=== PATIENT | female | born 1975 | race Caucasian/White ===

== ENCOUNTER → 2016-10-11 | Outpatient (CLI) | payer BC, OTHER ==
[~2016-10-11] MED LIST: ADVIL200 MG PO; AMBIEN10 MG PO; ATIVAN 1MG T1 MG/TAB PO; INDERAL 10MG10 MG PO; LAMICTAL 100MG100 MG PO; LEXAPRO 10MG10 MG PO; LINZESS290CAP; MAXALT MLT10 MG/TAB PO; METFORMIN500 MG PO; METOPROLOL SUC100 MG PO; NEURONTIN300 MG PO; NORCO 325 MG-51 TAB PO; PAXIL20 MG PO; SEROQUEL50 MG PO; TENORMIN 2525 MG/TAB PO; TENORMIN 5050 MG/TAB PO; ZOFRAN 4MG T4 MG/TAB PO
== END ==
LOC: BHSO 16:16
DX: F41.1 Generalized anxiety disorder (principal)

== ENCOUNTER 2016-10-17 13:13 | Emergency (ER) | payer BC, OTHER ==
[~2016-10-17] VITALS: Ht 167.6 cm; Wt 75.0 kg
[~2016-10-17 13:13] MED LIST changes: -ADVIL200 MG PO; -ATIVAN 1MG T1 MG/TAB PO; -INDERAL 10MG10 MG PO; -LAMICTAL 100MG100 MG PO; -LEXAPRO 10MG10 MG PO; -MAXALT MLT10 MG/TAB PO; -SEROQUEL50 MG PO; -TENORMIN 2525 MG/TAB PO; -TENORMIN 5050 MG/TAB PO; -ZOFRAN 4MG T4 MG/TAB PO
[2016-10-17 13:19] VITALS: TEMP 98.1
[2016-10-17] MEDS ORDERED: TENORMIN 5050 MG/TAB PO (13:22)
[2016-10-17] MEDS ORDERED: SEROQUEL50 MG PO (13:23)
[2016-10-17] MEDS ORDERED: LAMICTAL 100MG100 MG PO (13:24)
[2016-10-17 15:06] VITALS: BP 99/52; PULSE 62
== END 2016-10-17 15:07 | disposition home or self-care (01) ==
LOC: COL.ER 13:13
DX: G43.909 Migraine, unspecified, not intractable, without status migrainosus (principal); I10 Essential (primary) hypertension
CPT/HCPCS: J1100; J1200; J2550

== ENCOUNTER → 2016-11-09 | Outpatient (REF) ==
[~2016-11-09] MED LIST changes: +ADVIL200 MG PO; +ATIVAN 1MG T1 MG/TAB PO; +INDERAL 10MG10 MG PO; +LAMICTAL 100MG100 MG PO; +LEXAPRO 10MG10 MG PO; +MAXALT MLT10 MG/TAB PO; +SEROQUEL50 MG PO; +TENORMIN 2525 MG/TAB PO; +TENORMIN 5050 MG/TAB PO; +ZOFRAN 4MG T4 MG/TAB PO
== END ==
LOC: WSOH 08:00
DX: Z01.89 Encounter for other specified special examinations (principal)

== ENCOUNTER → 2017-01-03 | Outpatient (CLI) | payer BC | LOC: BHSO 16:15 | DX: F41.1 Generalized anxiety disorder (principal) ==

== ENCOUNTER 2017-01-19 13:30 | Emergency (ER) | payer BC ==
[~2017-01-19] VITALS: Ht 167.6 cm; Wt 75.0 kg
[~2017-01-19 13:30] MED LIST changes: -ADVIL200 MG PO; -ATIVAN 1MG T1 MG/TAB PO; -INDERAL 10MG10 MG PO; -LEXAPRO 10MG10 MG PO; -MAXALT MLT10 MG/TAB PO; -TENORMIN 2525 MG/TAB PO; -ZOFRAN 4MG T4 MG/TAB PO
[2017-01-19 13:31] VITALS: TEMP 98.6
[2017-01-19 14:05] LABS: BASO % 0.3 % (0.0-2.0); EOS # 0.1 (0.0-0.7); EOS % 1.5 % (0-4.0); GRAN # 5.9 (1.4-6.5); HEMATOCRIT 38.4 % (37.0-47.0); HEMOGLOBIN 13.1 g/dl (12.5-16.0); LYMPH # 0.8 (1.2-3.4); LYMPH % 11.4 % (20.0-51.0); MEAN CELL VOLUME 92 fl (80.0-100.0); MEAN CORPUSCULAR HEMOGLOBIN 31 pg (27.0-31.0); MEAN CORPUSCULAR HGB CONC 34 g/dl (33.0-37.0); MEAN PLATELET VOLUME 9.2 fl (7.4-10.4); MONO # 0.5 (0.1-0.6); MONO % 6.4 % (1.7-9.3); PLATELET COUNT 214 K/mm3 (130-400); RED BLOOD COUNT 4.18 M/mm3 (4.10-5.30); REDCELL DISTRIBUTION WIDTH-CV 12.2 % (11.5-14.5); WHITE BLOOD COUNT 7.4 K/mm3 (4.8-10.8)
[2017-01-19 14:08] LABS: ADJUSTED CALCIUM 9.1 mg/dL (8.4-10.2); ALBUMIN 4.3 gm/dL (3.5-5.0); CALCIUM 9.3 mg/dL (8.4-10.2); CREATININE, serum 0.8 mg/dL (0.52-1.25); POTASSIUM 3.9 mmol/L (3.4-5.0); TOTAL PROTEIN 7.4 gm/dL (6.4-8.2)
[2017-01-19] MEDS ORDERED: NORCO 325 MG-51 TAB PO (16:41)
[2017-01-19] MEDS ORDERED: ZOFRAN 4MG T4 MG/TAB PO (16:41)
[2017-01-19 17:08] VITALS: BP 122/68; PULSE 68
== END 2017-01-19 17:07 | disposition home or self-care (01) ==
LOC: COL.ER 13:30
PROVIDERS: Physician Assistant Medical
DX: R10.12 Left upper quadrant pain (principal); K80.20 Calculus of gallbladder without cholecystitis without obstruction; N83.201 Unspecified ovarian cyst, right side; F41.9 Anxiety disorder, unspecified; F32.9 Major depressive disorder, single episode, unspecified; E11.9 Type 2 diabetes mellitus without complications; Z79.84 Long term (current) use of oral hypoglycemic drugs
CPT/HCPCS: J2405; J3010; J7030; Q9967

== ENCOUNTER → 2017-02-18 | Outpatient (CLI) | payer BC ==
[~2017-02-18] MED LIST changes: +ADVIL200 MG PO; +ATIVAN 1MG T1 MG/TAB PO; +INDERAL 10MG10 MG PO; +LEXAPRO 10MG10 MG PO; +MAXALT MLT10 MG/TAB PO; +TENORMIN 2525 MG/TAB PO; +ZOFRAN 4MG T4 MG/TAB PO
== END ==
LOC: BHSO 13:57
DX: F33.1 Major depressive disorder, recurrent, moderate (principal)

== ENCOUNTER → 2017-03-31 | Outpatient (CLI) | payer BC, OTHER | LOC: BHSO 15:43 | DX: F33.1 Major depressive disorder, recurrent, moderate (principal) ==

== ENCOUNTER 2017-04-02 20:28 | Observation (INO) | payer BC, OTHER ==
[~2017-04-02] VITALS: Ht 167.6 cm; Wt 73.8 kg
[~2017-04-02 20:28] MED LIST changes: -ADVIL200 MG PO; -ATIVAN 1MG T1 MG/TAB PO; -INDERAL 10MG10 MG PO; -LEXAPRO 10MG10 MG PO; -MAXALT MLT10 MG/TAB PO; -TENORMIN 2525 MG/TAB PO
[2017-04-02] MEDS ORDERED: TENORMIN 2525 MG/TAB PO (20:55)
[2017-04-02] MEDS ORDERED: LEXAPRO 10MG10 MG PO (20:57)
[2017-04-02] MEDS ORDERED: ATIVAN 1MG T1 MG/TAB PO (20:57)
[2017-04-02] MEDS ORDERED: MAXALT MLT10 MG/TAB PO (20:59)
[2017-04-02 21:06] LABS: BASO % 0.3 % (0.0-2.0); EOS # 0.1 (0.0-0.7); EOS % 0.6 % (0-4.0); GRAN % 64.5 % (42.2-75.2); LYMPH # 2.2 (1.2-3.4); MEAN CELL VOLUME 88 fl (80.0-100.0); MEAN CORPUSCULAR HEMOGLOBIN 31 pg (27.0-31.0); MEAN CORPUSCULAR HGB CONC 35 g/dl (33.0-37.0); MEAN PLATELET VOLUME 9.4 fl (7.4-10.4); MONO # 0.5 (0.1-0.6); MONO % 6.2 % (1.7-9.3); PLATELET COUNT 270 K/mm3 (130-400); RED BLOOD COUNT 3.92 M/mm3 (4.10-5.30); REDCELL DISTRIBUTION WIDTH-CV 11.3 % (11.5-14.5); WHITE BLOOD COUNT 7.8 K/mm3 (4.8-10.8)
[2017-04-02 21:09] LABS: HEMATOCRIT 34.5 % (37.0-47.0)
[2017-04-02 21:16] LABS: ADJUSTED CALCIUM 9.5 mg/dL (8.4-10.2); ALANINE AMINOTRANSFERASE 53 U/L (9-52); ALKALINE PHOSPHATASE 56 U/L (50-136); ANION GAP 10 mmol/L (7-16); BILIRUBIN,TOTAL 0.7 mg/dL (0.0-1.0); BLOOD UREA NITROGEN 20 mg/dL (7-17); CALCIUM 9.5 mg/dL (8.4-10.2); CARBON DIOXIDE 24 mmol/L (22-30); CHLORIDE 106 mmol/L (98-107); CREATININE, serum 0.78 mg/dL (0.52-1.25); GLUCOSE 94 mg/dL (74-106); LIPASE 511 U/L (23-300); POTASSIUM 3.5 mmol/L (3.4-5.0); SODIUM 139 mmol/L (137-145); TOTAL PROTEIN 6.9 gm/dL (6.4-8.2)
[2017-04-02 21:28] LABS: B-TYPE NATRIURETIC PEPTIDE 213 pg/mL (0-125)
[2017-04-02 21:29] LABS: TROPONIN-I < 0.012 ng/mL (0.000-0.034)
[2017-04-03 02:32] VITALS: BP 114/63; PULSE 50; TEMP 98.6
[2017-04-03 04:00] VITALS: BP 113/62; PULSE 52; TEMP 97.5
[2017-04-03 10:28] VITALS: BP 104/40; PULSE 47; TEMP 98.2
[2017-04-03 14:01] VITALS: BP 121/69; PULSE 51; TEMP 98.4
== END 2017-04-03 19:04 | disposition home or self-care (01) ==
LOC: COL.ER 20:28 → SURG 04-03 00:02
PROVIDERS: Emergency Medicine
DX: R10.13 Epigastric pain (principal); I10 Essential (primary) hypertension; F32.9 Major depressive disorder, single episode, unspecified; Z90.710 Acquired absence of both cervix and uterus; Z90.49 Acquired absence of other specified parts of digestive tract; Z82.49 Family history of ischemic heart disease and other diseases of the circulatory system; Z82.5 Family history of asthma and other chronic lower respiratory diseases
CPT/HCPCS: G0378; J1885; J2270; J2405; J7030; Q9967

== ENCOUNTER 2017-04-07 13:20 | Day surgery (SDC) | payer BC, OTHER ==
[~2017-04-07] VITALS: Ht 167.6 cm; Wt 73.6 kg
[2017-04-07] VITALS (12 sets, daily range): BP systolic 118–144; BP diastolic 71–86; PULSE 48–59; TEMP 97.8–98.6
[~2017-04-07 13:20] MED LIST changes: +ATIVAN 1MG T1 MG/TAB PO; +LEXAPRO 10MG10 MG PO; +MAXALT MLT10 MG/TAB PO; +TENORMIN 2525 MG/TAB PO
[2017-04-07] MEDS ORDERED: INDERAL 10MG10 MG PO (13:57)
[2017-04-07] MEDS ORDERED: ADVIL200 MG PO (13:58)
== END 2017-04-07 20:00 | disposition home or self-care (01) ==
LOC: SDCO 13:20 → JCC 17:05 → SDCO 20:00
DX: K83.8 Other specified diseases of biliary tract (principal); R94.5 Abnormal results of liver function studies; R93.3 Abnormal findings on diagnostic imaging of other parts of digestive tract; K29.70 Gastritis, unspecified, without bleeding; I10 Essential (primary) hypertension; K59.00 Constipation, unspecified; D64.9 Anemia, unspecified; E11.9 Type 2 diabetes mellitus without complications; F32.9 Major depressive disorder, single episode, unspecified; F41.9 Anxiety disorder, unspecified; Z90.710 Acquired absence of both cervix and uterus; Z90.49 Acquired absence of other specified parts of digestive tract; Z83.79 Family history of other diseases of the digestive system
CPT/HCPCS: OP; C1769; J2405; J2550; J2704; J3010; J7120; Q9967

== ENCOUNTER → 2017-05-20 | Outpatient (CLI) | payer BC ==
[~2017-05-20] MED LIST changes: +ADVIL200 MG PO; +INDERAL 10MG10 MG PO
== END ==
LOC: MC.RAD 08:30
DX: R92.0 Mammographic microcalcification found on diagnostic imaging of breast (principal); R92.2 Inconclusive mammogram

== ENCOUNTER 2017-05-25 18:19 | Emergency (ER) | payer BC ==
[~2017-05-25] VITALS: Ht 167.6 cm; Wt 72.7 kg
[2017-05-25 18:22] VITALS: TEMP 98.4
[2017-05-25 19:20] LABS: BASO % 0.1 % (0.0-2.0); EOS # 0.1 (0.0-0.7); EOS % 0.9 % (0-4.0); GRAN # 4.3 (1.4-6.5); LYMPH # 2.9 (1.2-3.4); LYMPH % 36.8 % (20.0-51.0); MEAN CELL VOLUME 90 fl (80.0-100.0); MEAN CORPUSCULAR HEMOGLOBIN 31 pg (27.0-31.0); MEAN CORPUSCULAR HGB CONC 35 g/dl (33.0-37.0); MEAN PLATELET VOLUME 9.1 fl (7.4-10.4); MONO # 0.5 (0.1-0.6); MONO % 6.9 % (1.7-9.3); PLATELET COUNT 254 K/mm3 (130-400); RED BLOOD COUNT 3.82 M/mm3 (4.10-5.30); WHITE BLOOD COUNT 7.9 K/mm3 (4.8-10.8)
[2017-05-25 19:22] LABS: HEMATOCRIT 34.3 % (37.0-47.0)
[2017-05-25 19:30] LABS: ADJUSTED CALCIUM 9.3 mg/dL (8.4-10.2); ALANINE AMINOTRANSFERASE 38 U/L (9-52); ALKALINE PHOSPHATASE 53 U/L (50-136); ANION GAP 9 mmol/L (7-16); BILIRUBIN,TOTAL 0.4 mg/dL (0.0-1.0); BLOOD UREA NITROGEN 22 mg/dL (7-17); CALCIUM 9.3 mg/dL (8.4-10.2); CARBON DIOXIDE 24 mmol/L (22-30); CHLORIDE 107 mmol/L (98-107); CREATININE, serum 0.93 mg/dL (0.52-1.25); GLUCOSE 88 mg/dL (74-106); LIPASE 88 U/L (23-300); POTASSIUM 3.5 mmol/L (3.4-5.0); SODIUM 139 mmol/L (137-145); TOTAL PROTEIN 6.9 gm/dL (6.4-8.2)
[2017-05-25 19:42] LABS: TROPONIN-I < 0.012 ng/mL (0.000-0.034)
[2017-05-25 19:43] LABS: COLLECTION METHOD CLEAN CATCH
[2017-05-25 19:49] LABS: PH 6 (5-8); SQUAMOUS EPITHELIAL None Seen /hpf; URINE APPEARANCE Clear; URINE BACTERIA Rare /hpf; URINE BILIRUBIN Negative (NEGATIVE); URINE BLOOD Negative (NEGATIVE); URINE COLOR Straw; URINE GLUCOSE Negative (NEGATIVE); URINE KETONE Negative (NEGATIVE); URINE LEUKOCYTE ESTERASE Negative (NEGATIVE); URINE PROTEIN(semi-quant) Negative (NEGATIVE); URINE RBC 0-2 /hpf; URINE UROBILINOGEN Negative (NEGATIVE); URINE WBC 0-2 /hpf
[2017-05-25 21:29] VITALS: BP 151/68; PULSE 64
== END 2017-05-25 21:29 | disposition home or self-care (01) ==
LOC: COL.ER 18:19
PROVIDERS: Emergency Medicine
DX: R07.9 Chest pain, unspecified (principal); F32.9 Major depressive disorder, single episode, unspecified; Z79.1 Long term (current) use of non-steroidal anti-inflammatories (NSAID)

== ENCOUNTER 2017-10-21 18:28 | Emergency (ER) | payer BC ==
[~2017-10-21] VITALS: Ht 167.6 cm; Wt 77.3 kg
[2017-10-21 18:40] VITALS: TEMP 98.9
[2017-10-21 19:21] LABS: BASO % 0.3 % (0.0-2.0); EOS # 0.1 (0.0-0.7); EOS % 1.1 % (0-4.0); GRAN # 8.4 (1.4-6.5); GRAN % 66.3 % (42.2-75.2); HEMATOCRIT 37.9 % (37.0-47.0); HEMOGLOBIN 12.7 g/dl (12.5-16.0); LYMPH % 23.4 % (20.0-51.0); MEAN CELL VOLUME 94 fl (80.0-100.0); MEAN CORPUSCULAR HEMOGLOBIN 32 pg (27.0-31.0); MEAN CORPUSCULAR HGB CONC 34 g/dl (33.0-37.0); MONO # 1.1 (0.1-0.6); MONO % 8.3 % (1.7-9.3); PLATELET COUNT 221 K/mm3 (130-400); RED BLOOD COUNT 4.02 M/mm3 (4.10-5.30); REDCELL DISTRIBUTION WIDTH-CV 12.7 % (11.5-14.5)
[2017-10-21 19:29] LABS: CALCIUM 8.1 mg/dL (8.4-10.2); CREATININE, serum 0.97 mg/dL (0.52-1.25); POTASSIUM 3.8 mmol/L (3.4-5.0)
[2017-10-21 20:53] VITALS: BP 124/69; PULSE 65
== END 2017-10-21 20:45 | disposition home or self-care (01) ==
LOC: COL.ER 18:28
PROVIDERS: Emergency Medicine
DX: M79.605 Pain in left leg (principal); E83.51 Hypocalcemia; M79.89 Other specified soft tissue disorders

== ENCOUNTER → 2017-10-31 | Outpatient (CLI) | payer BC | LOC: MC.RAD 07:57 | DX: N63.20 Unspecified lump in the left breast, unspecified quadrant (principal) ==

== ENCOUNTER → 2017-11-10 | Outpatient (CLI) | payer BC | LOC: COL.RAD 07:58 | DX: N13.5 Crossing vessel and stricture of ureter without hydronephrosis (principal) | CPT/HCPCS: A9562 ==

== ENCOUNTER → 2017-11-29 | Outpatient (CLI) | payer BC | LOC: BHSO 15:02 | DX: F33.1 Major depressive disorder, recurrent, moderate (principal) | CPT/HCPCS: G0463 ==

== ENCOUNTER → 2018-01-27 | Outpatient (CLI) | payer BC | LOC: BHSO 15:43 | DX: F31.81 Bipolar II disorder (principal) | CPT/HCPCS: G0463 ==

== ENCOUNTER 2018-05-05 19:53 | Emergency (ER) | payer BC ==
[~2018-05-05] VITALS: Ht 167.6 cm; Wt 84.1 kg
[2018-05-05 20:17] VITALS: BP 121/71; TEMP 98.8
[2018-05-05] MEDS ORDERED: TOPAMAX50 MG PO (21:15)
[2018-05-05] MEDS ORDERED: ULTRAM 50MG TAB50 MG (21:16)
[2018-05-05] MEDS ORDERED: TENORMIN 2525 MG/TAB PO (21:16)
[2018-05-05 21:26] VITALS: PULSE 62
== END 2018-05-05 21:26 | disposition home or self-care (01) ==
LOC: COL.ER 19:53
DX: S39.012A Strain of muscle, fascia and tendon of lower back, initial encounter (principal); S70.01XA Contusion of right hip, initial encounter; M46.96 Unspecified inflammatory spondylopathy, lumbar region; Z79.891 Long term (current) use of opiate analgesic; W01.0XXA Fall on same level from slipping, tripping and stumbling without subsequent striking against object, initial encounter

== ENCOUNTER 2018-05-07 18:12 | Emergency (ER) | payer BC ==
[~2018-05-07] VITALS: Ht 167.6 cm; Wt 81.8 kg
[~2018-05-07 18:12] MED LIST changes: +TOPAMAX50 MG PO; +ULTRAM 50MG TAB50 MG
[2018-05-07 18:18] VITALS: BP 132/78; TEMP 97.6
[2018-05-07 19:37] VITALS: PULSE 55
== END 2018-05-07 19:37 | disposition home or self-care (01) ==
LOC: COL.ER 18:12
DX: M62.830 Muscle spasm of back (principal); M51.36 Other intervertebral disc degeneration, lumbar region; I10 Essential (primary) hypertension; F32.9 Major depressive disorder, single episode, unspecified; Z90.49 Acquired absence of other specified parts of digestive tract; Z90.710 Acquired absence of both cervix and uterus; Z98.890 Other specified postprocedural states; W19.XXXA Unspecified fall, initial encounter
CPT/HCPCS: J1885

== ENCOUNTER → 2018-05-12 | Outpatient (CLI) | payer BC | LOC: MC.RAD 07:30 | DX: N63.20 Unspecified lump in the left breast, unspecified quadrant (principal); R92.0 Mammographic microcalcification found on diagnostic imaging of breast | CPT/HCPCS: G0279 ==

== ENCOUNTER → 2018-08-25 | Outpatient (CLI) | payer BC | LOC: BHSO 10:33 | DX: F41.1 Generalized anxiety disorder (principal) | CPT/HCPCS: G0463 ==

== ENCOUNTER 2018-09-25 13:47 | Day surgery (SDC) | payer BC ==
[~2018-09-25] VITALS: Ht 167.6 cm; Wt 97.7 kg
[2018-09-25] MEDS ORDERED: LYRICA 50MG CAP50 MG PO (14:40)
[2018-09-25] MEDS ORDERED: WELLBUTRIN SR150 M1 PO (14:40)
[2018-09-25 14:41] VITALS: BP 123/64; PULSE 63; TEMP 98.3
[2018-09-25 15:35] VITALS: BP 125/64; PULSE 71; TEMP 98.5
--- NOTE | 2018-09-25 15:35 | NUR ---
Patient arrives to [facility] via cart, accompanied by [facility] RN Dee Dee. Bedside report recieved. Patient ambulates with standby assist to chair in room. Monitoring applied - VSS and WNL on room air. Denies any pain or nausea. Offered and receives sprite, jello, and crackers - tolerating well. Call light in reach. Family at the bedside. Will continue to monitor.
--- NOTE | 2018-09-25 15:40 | NUR ---
Dr. Maki at the bedside.
[2018-09-25 15:50] VITALS: BP 99/78; PULSE 62
--- NOTE | 2018-09-25 15:50 | NUR ---
Patient is resting comfortably in room. Denies pain, nausea, dizziness, or other symptoms or needs. Tolerating PO well. VSS on room air. Will continue to monitor.
[2018-09-25 16:05] VITALS: BP 99/77; PULSE 63
--- NOTE | 2018-09-25 16:05 | NUR ---
VSS and WNL on room air. Denies any pain, nausea, or need.
[2018-09-25 16:20] VITALS: BP 111/69; PULSE 60
--- NOTE | 2018-09-25 16:20 | NUR ---
VSS and WNL on room air. Denies any needs at this time.
--- NOTE | 2018-09-25 16:38 | NUR ---
Discharge criteria has been met. Discharge instructions discussed, denies any questions, and verbalizes understanding. PIV removed with catheter intact and hemostasis achieved. Patient changes to clothing independently. Escorted to exit via wheelchair. Discharged to home with ride in private vehicle at 1638.
== END 2018-09-25 16:38 | disposition home or self-care (01) ==
LOC: SDCO 13:47
DX: K59.00 Constipation, unspecified (principal); R14.0 Abdominal distension (gaseous); R10.9 Unspecified abdominal pain; Z79.899 Other long term (current) drug therapy; D64.9 Anemia, unspecified; F32.9 Major depressive disorder, single episode, unspecified; I10 Essential (primary) hypertension; R30.0 Dysuria; R20.0 Anesthesia of skin; E11.9 Type 2 diabetes mellitus without complications; Z79.84 Long term (current) use of oral hypoglycemic drugs; R53.83 Other fatigue
CPT/HCPCS: J2250; J3010; J7030

== ENCOUNTER → 2018-10-20 | Outpatient (CLI) | payer BC ==
[~2018-10-20] MED LIST changes: +LYRICA 50MG CAP50 MG PO; +WELLBUTRIN SR150 M1 PO
== END ==
LOC: COL.RAD 14:31
DX: M19.90 Unspecified osteoarthritis, unspecified site (principal)
CPT/HCPCS: A9585

== ENCOUNTER → 2019-04-05 | Outpatient (CLI) | payer BC | LOC: BHSO 16:05 | DX: F33.1 Major depressive disorder, recurrent, moderate (principal) | CPT/HCPCS: G0463 ==

== ENCOUNTER → 2019-06-12 | Outpatient (CLI) | payer BC | LOC: BHSO 16:22 | DX: F41.1 Generalized anxiety disorder (principal) ==

== ENCOUNTER → 2019-06-19 | Outpatient (CLI) | payer BC | LOC: MC.RAD 06-05 10:30 | DX: Z12.31 Encounter for screening mammogram for malignant neoplasm of breast (principal) ==

== ENCOUNTER → 2019-07-20 | Outpatient (CLI) | payer BC, OTHER | LOC: BHSO 08:02 | DX: F33.0 Major depressive disorder, recurrent, mild (principal) | CPT/HCPCS: G0463 ==

== ENCOUNTER → 2019-08-24 | Outpatient (CLI) | payer BC, OTHER | LOC: BHSO 08:06 | DX: F33.41 Major depressive disorder, recurrent, in partial remission (principal) | CPT/HCPCS: G0463 ==

== ENCOUNTER → 2019-12-28 | Outpatient (CLI) | payer BC | LOC: BHSO 07:59 | DX: F33.1 Major depressive disorder, recurrent, moderate (principal) | CPT/HCPCS: G0463 ==

== ENCOUNTER → 2020-01-24 | Outpatient (CLI) | payer BC | LOC: BHSO 07:59 | DX: F33.41 Major depressive disorder, recurrent, in partial remission (principal) | CPT/HCPCS: G0463 ==

== ENCOUNTER 2021-08-12 17:47 | Emergency (ER) | payer OTHER ==
[~2021-08-12] VITALS: Ht 167.6 cm; Wt 100.0 kg
[2021-08-12 18:11] VITALS: TEMP 99.5
[2021-08-13 01:39] VITALS: BP 115/78; PULSE 76
== END 2021-08-13 01:40 | disposition home or self-care (01) ==
LOC: COL.ER 17:47
DX: U07.1 COVID-19 (principal); I10 Essential (primary) hypertension; F41.9 Anxiety disorder, unspecified; G47.00 Insomnia, unspecified; Z79.899 Other long term (current) drug therapy

== ENCOUNTER → 2021-08-31 | Outpatient (CLI) | payer OTHER | LOC: COL.RAD 08-20 13:00 | DX: M25.511 Pain in right shoulder (principal) | CPT/HCPCS: J3301; Q9967 ==

== ENCOUNTER 2022-01-08 11:43 | Day surgery (SDC) | payer BC ==
[~2022-01-08] VITALS: Ht 167.6 cm; Wt 105.5 kg
[2022-01-08] MEDS ORDERED: LIPITOR 10MG10 MG PO (13:00)
[2022-01-08] MEDS ORDERED: LITHIUM CA150 MG/CAP PO (13:01)
[2022-01-08] MEDS ORDERED: PRILOSEC 20MG20 MG PO (13:01)
[2022-01-08 13:29] VITALS: BP 125/69; PULSE 64; TEMP 97.9
[2022-01-08 14:50] VITALS: BP 105/53; PULSE 66; TEMP 97.3
--- NOTE | 2022-01-08 14:50 | NUR ---
PATIENT ARRIVES TO ROOM 3 VIA CART. ASSIST TO CHAIR X 2. VITAL SIGNS WNL. PATIENT REQUESTS JELLO AND GRAPE JUICE. FATHER AT BEDSIDE. WILL CONTINUE TO MONITOR.
[2022-01-08 15:05] VITALS: BP 122/52; PULSE 69
--- NOTE | 2022-01-08 15:05 | NUR ---
PATIENT IS AWAKE AND FULLY ORIENTED. SHE TOLERATED JUICE AND JELLO WELL. DENIES ANY NAUSEA OR PAIN. SHE IS WAITING FOR THE DOCTOR TO COME SEE HER AND THEN WILL BE READY TO DISCHARGE. DAD STILL AT BEDSIDE.
[2022-01-08 15:20] VITALS: BP 113/86; PULSE 59
--- NOTE | 2022-01-08 15:20 | NUR ---
PATIENT IS READY FOR DISCHARGE. WAITING FOR DOCTOR TO COME IN AND SEE HER. IV REMOVED AT 1516. DAD IS AT BEDSIDE. WILL CONTINUE TO MONITOR.
== END 2022-01-08 15:40 ==
LOC: SDCO 11:43
DX: K59.00 Constipation, unspecified (principal); K64.1 Second degree hemorrhoids; E66.01 Morbid (severe) obesity due to excess calories; Z68.41 Body mass index [BMI] 40.0-44.9, adult
CPT/HCPCS: J2704; J3010; J7030

== ENCOUNTER 2022-03-14 22:54 | Inpatient (IN) | payer BC ==
[~2022-03-14] VITALS: Ht 167.6 cm; Wt 105.4 kg
[~2022-03-14 22:54] MED LIST changes: +LIPITOR 10MG10 MG PO; +LITHIUM CA150 MG/CAP PO; +PRILOSEC 20MG20 MG PO
[2022-03-14 23:32] LABS: BASO % 0.3 % (0.0-2.0); EOS # 0.1 K/mm3 (0.0-0.7); EOS % 1.2 % (0.0-4.0); GRAN % 54.1 % (42.2-75.2); HEMATOCRIT 39.6 % (37.0-47.0); HEMOGLOBIN 13.1 g/dl (12.5-16.0); LYMPH # 3.3 K/mm3 (1.2-3.4); LYMPH % 35.9 % (20.0-51.0); MEAN CELL VOLUME 89 fl (80.0-100.0); MEAN CORPUSCULAR HEMOGLOBIN 29 pg (27-31); MEAN CORPUSCULAR HGB CONC 33 g/dl (33.0-37.0); MEAN PLATELET VOLUME 8.9 fl (7.4-10.4); MONO # 0.7 K/mm3 (0.1-0.6); MONO % 7.9 % (1.7-9.3); PLATELET COUNT 335 K/mm3 (130-400); RED BLOOD COUNT 4.47 M/mm3 (4.10-5.30); REDCELL DISTRIBUTION WIDTH-CV 12.6 % (11.5-14.5)
[2022-03-14 23:46] LABS: INR 1.1 (0.8-3.0); PROTHROMBIN TIME 12.6 SECONDS (9.7-12.8)
[2022-03-14 23:48] LABS: PARTIAL THROMBOPLASTIN TIME 32.5 SECONDS (26.0-37.0)
[2022-03-14 23:59] LABS: ALANINE AMINOTRANSFERASE 18 U/L (0-55); ALBUMIN 3.6 gm/dL (3.5-5.0); ALKALINE PHOSPHATASE 68 U/L (40-150); ANION GAP 12 mmol/L (7-16); AST,SGOT 11 U/L (5-34); BILIRUBIN,TOTAL 0.4 mg/dL (0.2-1.2); BLOOD UREA NITROGEN 22 mg/dL (7-19); CALCIUM 9.5 mg/dL (8.4-10.2); CARBON DIOXIDE 25 mmol/L (22-29); CHLORIDE 107 mmol/L (98-107); CREATININE, serum 1.09 mg/dL (0.57-1.11); GLUCOSE 103 mg/dL (70-99); POTASSIUM 3.8 mmol/L (3.5-4.5); SODIUM 144 mmol/L (136-145); TOTAL PROTEIN 6.9 gm/dL (6.2-8.1)
[2022-03-15] VITALS (547 sets, daily range): BP systolic 106–139; BP diastolic 56–90; PULSE 56–82; TEMP 97.7–99; O2SAT 67–100
[2022-03-15 00:22] LABS: ALCOHOL(ethanol),MEDICAL < 10 mg/dL (0-10)
[2022-03-15] MEDS ORDERED: SEROQUEL 200MG200 MG PO (00:54)
[2022-03-15] MEDS ORDERED: SYNTHROID0.075 MG/T PO (00:54)
[2022-03-15] MEDS ORDERED: KLONOPIN 1MG1 MG PO (01:44)
[2022-03-15] MEDS ORDERED: FASTIN30 MG PO (01:48)
[2022-03-15] MEDS ORDERED: LINZESS290CAP PO (01:49)
--- NOTE | 2022-03-15 02:15 | NUR ---
PT ARRIVED FROM ER VIA STRETCHER. SCOOTED SELF TO ICU BED. CONNECTED TO MONITORING. PT DENIES PAIN AT THIS TIME. NO SIGNIFICANT DEFICITS NOTED TO STRENGTH, CLEAR SPEECH, AAOX4. MINOR ASSYMETRY TO R SIDE SMILE. DISCUSSED MRI ORDER FOR AM, PT REPORTS HAVING A METAL STAPLE IN L GREAT TOE, WILL NEED TO EVALUATE FOR MRI CLEARANCE. PT AWARE OF FALL/BLEEDING RISK AND PRECAUTIONS AFTER MEDICATION GIVEN IN ER. HAS CALL LIGHT, REPORTS NO NEEDS AT THIS TIME. WILL CONTINUE TO MONITOR.
[2022-03-15 03:12] LABS: MAGNESIUM 2.3 mg/dL (1.6-2.6); PHOSPHOROUS 4.3 mg/dL (2.3-4.7)
[2022-03-15 03:14] LABS: COLLECTION METHOD IN
[2022-03-15 03:25] LABS: BASO % 0.4 % (0.0-2.0); EOS # 0.1 K/mm3 (0.0-0.7); EOS % 1.5 % (0.0-4.0); GRAN # 4.5 K/mm3 (1.4-6.5); GRAN % 52.2 % (42.2-75.2); HEMATOCRIT 37.8 % (37.0-47.0); HEMOGLOBIN 12.5 g/dl (12.5-16.0); LYMPH # 3.3 K/mm3 (1.2-3.4); MEAN CELL VOLUME 89 fl (80.0-100.0); MEAN CORPUSCULAR HEMOGLOBIN 29 pg (27-31); MEAN CORPUSCULAR HGB CONC 33 g/dl (33.0-37.0); MEAN PLATELET VOLUME 8.9 fl (7.4-10.4); MONO # 0.6 K/mm3 (0.1-0.6); MONO % 7.4 % (1.7-9.3); PLATELET COUNT 324 K/mm3 (130-400); RED BLOOD COUNT 4.25 M/mm3 (4.10-5.30); REDCELL DISTRIBUTION WIDTH-CV 12.8 % (11.5-14.5)
[2022-03-15 03:28] LABS: MUCOUS Present (NOT PRESENT); SQUAMOUS EPITHELIAL 0-2 /hpf (0-10); URINE BACTERIA None Seen /hpf (NONE SEEN); URINE RBC 0-2 /hpf (0-2)
[2022-03-15 03:30] LABS: URINE APPEARANCE Clear (CLEAR/HAZY); URINE BLOOD TRACE-INTACT (NEGATIVE); URINE COLOR Yellow (YELLOW); URINE GLUCOSE Negative (NEGATIVE); URINE KETONE Negative (NEGATIVE); URINE NITRATE Negative (NEGATIVE); URINE PROTEIN(semi-quant) Negative (NEGATIVE); URINE UROBILINOGEN 0.2 E.U/dL (0.2-1.0)
[2022-03-15 03:39] LABS: TRICYCLIC ANTIDEPRESS URINE POSITIVE
[2022-03-15 03:41] LABS: CALCIUM 9.1 mg/dL (8.4-10.2); CREATININE, serum 1.03 mg/dL (0.57-1.11); POTASSIUM 3.6 mmol/L (3.5-4.5)
[2022-03-15 10:35] LABS: CHOLESTEROL RISK RATIO 3.6
--- NOTE | 2022-03-15 14:41 | NUR ---
0730: received report from ABHIJEET Caballero. Pt lying in bed, on room air, A&O. VSS. Pt denies pain. NIHSS ordered per protocol & documented. Pt denies further needs at this time. Logan in place draining clear yellow urine to DD. 1100: Logan dc'd at this time w/o complications. Pt to MRI. Assisted to , stand pivot w/o issues. 1230: Pt back from MRI. Voided post cath removal w/o issues. 1400: Pt transferring to medical floor. Report called to ABHIJEET Chin. 1430: Pt transferred to Room 358 via Elsy MAGUIRE RN in room. All questions answered.
[2022-03-16] VITALS (7 sets, daily range): BP systolic 97–124; BP diastolic 46–84; PULSE 56–74; TEMP 98–98.6
--- NOTE | 2022-03-16 11:54 | NUR ---
Elsie: Christianity Situation: Principal Database Developer stopped by room on rounds Background: PT was resting Assessment: PT has no needs right now. She appreciated the visit. Recommendation: Principal Database Developer will follow up as needed
--- NOTE | 2022-03-16 12:56 | NUR ---
PT CALLED RN INTO HER ROOM AND C/O OF BLURRY VISION, PINEDA AND A TINGLING SENSATION ALL OVER, TOOK PTS BP 105\52 HR 56, AFEBRILE, 95% O2, CALLED DR. MOSELEY TO INFORM HIM THAT PT WAS WANTING TO SEE HIM AND INFORM HIM OF HER SYMPTOMS, TYLENOL IS NOT COVERING HER HEAD PAIN, ORDERED 2TAB FO FIORICET BID PRN, WILL GIVE AND CONTINUE TO MONITOR, DR MOSELEY SAID HE WOULD BE BY LATER TO SEE HER
[2022-03-17 03:54] VITALS: BP 97/57; PULSE 51; TEMP 98.5
[2022-03-17 04:29] VITALS: BP 113/68; PULSE 63
[2022-03-17 06:05] LABS: BASO % 0.6 % (0.0-2.0); EOS # 0.2 K/mm3 (0.0-0.7); EOS % 2.5 % (0.0-4.0); GRAN # 3.4 K/mm3 (1.4-6.5); GRAN % 47.9 % (42.2-75.2); HEMATOCRIT 37.5 % (37.0-47.0); HEMOGLOBIN 12.4 g/dl (12.5-16.0); LYMPH # 2.9 K/mm3 (1.2-3.4); LYMPH % 40.7 % (20.0-51.0); MEAN CELL VOLUME 90 fl (80.0-100.0); MEAN CORPUSCULAR HEMOGLOBIN 30 pg (27-31); MEAN CORPUSCULAR HGB CONC 33 g/dl (33.0-37.0); MEAN PLATELET VOLUME 9.2 fl (7.4-10.4); MONO # 0.6 K/mm3 (0.1-0.6); MONO % 7.9 % (1.7-9.3); PLATELET COUNT 266 K/mm3 (130-400); RED BLOOD COUNT 4.16 M/mm3 (4.10-5.30); REDCELL DISTRIBUTION WIDTH-CV 12.8 % (11.5-14.5)
[2022-03-17 06:29] LABS: CREATININE, serum 0.81 mg/dL (0.57-1.11); MAGNESIUM 1.9 mg/dL (1.6-2.6); PHOSPHOROUS 4.3 mg/dL (2.3-4.7); POTASSIUM 3.5 mmol/L (3.5-4.5)
[2022-03-17 07:17] VITALS: BP 109/48; PULSE 62; TEMP 98
[2022-03-17] MEDS ORDERED: PLAVIX 75MG TAB75 MG PO (07:46)
[2022-03-17] MEDS ORDERED: LIPITOR 40MG TA40 MG PO (07:47)
[2022-03-17] MEDS ORDERED: ASPIRIN 81M81 MG/TA2 PO (07:47)
--- NOTE | 2022-03-17 09:36 | NUR ---
PT FOUND SITTING UP IN BED. SHIFT ASSESMENT PERFORMED. MORNING MEDICATIONS ADMINISTERED. PT READY AND AWAITING DISCHARGE.
--- NOTE | 2022-03-17 10:00 | NUR ---
DISCHARGE INSTRUCTIONS GIVEN, ALL QUESTIONS ANSWERED. IV D/C. TELE D/C. PT PACKING PERSONAL BELONGINGS. WILL ESCORT PT OFF OF UNIT WHEN TRANSPORTATION ARRIVES.
== END 2022-03-17 11:36 | disposition home or self-care (01) | DRG 63 ==
LOC: COL.ER 22:54 → MEDICAL 03-15 01:18 → ICU 03-15 01:18 → MEDICAL 03-15 14:17
PROVIDERS: Emergency Medicine; Internal Medicine; Nurse Practitioner Family; ADMIT Internal Medicine
DX: I63.9 Cerebral infarction, unspecified (principal); R27.0 Ataxia, unspecified; H53.2 Diplopia; I10 Essential (primary) hypertension; E03.9 Hypothyroidism, unspecified; F32.A Depression, unspecified; F41.1 Generalized anxiety disorder; F43.10 Post-traumatic stress disorder, unspecified; F43.20 Adjustment disorder, unspecified; G47.00 Insomnia, unspecified; M79.7 Fibromyalgia; G43.909 Migraine, unspecified, not intractable, without status migrainosus; E78.5 Hyperlipidemia, unspecified; I25.10 Atherosclerotic heart disease of native coronary artery without angina pectoris; K21.9 Gastro-esophageal reflux disease without esophagitis; G89.29 Other chronic pain; R07.9 Chest pain, unspecified; R29.700 NIHSS score 0; G47.30 Sleep apnea, unspecified; Z90.49 Acquired absence of other specified parts of digestive tract; Z95.5 Presence of coronary angioplasty implant and graft; Z79.890 Hormone replacement therapy; Z72.89 Other problems related to lifestyle; Z88.5 Allergy status to narcotic agent; Z90.710 Acquired absence of both cervix and uterus; Z23 Encounter for immunization
CPT/HCPCS: A9575; J3101; J7030; Q9967

== ENCOUNTER → 2022-04-09 | Outpatient (CLI) | payer BC ==
[~2022-04-09] MED LIST changes: +ASPIRIN 81M81 MG/TA2 PO; +FASTIN30 MG PO; +KLONOPIN 1MG1 MG PO; +LINZESS290CAP PO; +LIPITOR 40MG TA40 MG PO; +PLAVIX 75MG TAB75 MG PO; +SEROQUEL 200MG200 MG PO; +SYNTHROID0.075 MG/T PO
== END ==
LOC: MC.RAD 10:58
DX: Z12.31 Encounter for screening mammogram for malignant neoplasm of breast (principal)

== ENCOUNTER 2022-08-24 12:01 | Outpatient (CLI) | payer BC ==
[~2022-08-24] VITALS: Ht 167.7 cm; Wt 107.5 kg
[2022-08-24] MEDS ORDERED: PROTONIX 40MG T40 MG PO (12:45)
[2022-08-24] MEDS ORDERED: ZYPREXA10 MG PO (12:47)
[2022-08-24] MEDS ORDERED: AJOVY225 MG/1.5 SQ (12:47)
[2022-08-24] MEDS ORDERED: SAXENDA6 MG/ML SQ (12:48)
[2022-08-24 12:49] VITALS: BP 105/60; PULSE 72; TEMP 98
[2022-08-24 13:07] LABS: BASO % 0.5 % (0.0-2.0); EOS # 0.4 K/mm3 (0.0-0.7); EOS % 5.9 % (0.0-4.0); GRAN # 2.9 K/mm3 (1.4-6.5); GRAN % 44.3 % (42.2-75.2); HEMATOCRIT 38.4 % (37.0-47.0); HEMOGLOBIN 12.2 g/dl (12.5-16.0); LYMPH # 2.6 K/mm3 (1.2-3.4); LYMPH % 40.9 % (20.0-51.0); MEAN CELL VOLUME 90 fl (80.0-100.0); MEAN CORPUSCULAR HEMOGLOBIN 29 pg (27-31); MEAN CORPUSCULAR HGB CONC 32 g/dl (33.0-37.0); MEAN PLATELET VOLUME 9.1 fl (7.4-10.4); MONO # 0.5 K/mm3 (0.1-0.6); MONO % 8.1 % (1.7-9.3); PLATELET COUNT 316 K/mm3 (130-400); RED BLOOD COUNT 4.25 M/mm3 (4.10-5.30); REDCELL DISTRIBUTION WIDTH-CV 12.8 % (11.5-14.5)
[2022-08-24 13:12] LABS: INR 1.1 (0.8-3.0); PROTHROMBIN TIME 12.2 SECONDS (9.7-12.8)
[2022-08-24 13:21] LABS: CALCIUM 9.4 mg/dL (8.4-10.2); CREATININE, serum 0.93 mg/dL (0.57-1.11); POTASSIUM 4.3 mmol/L (3.5-4.5)
[2022-08-24 14:15] VITALS: BP 99/60; PULSE 73; TEMP 98
--- NOTE | 2022-08-24 14:21 | NUR ---
BRENDEN COMPLETED. PT AWAKE. VSS. FRIEND BEDSIDE.
[2022-08-24 14:30] VITALS: BP 117/68; PULSE 68; TEMP 98
--- NOTE | 2022-08-24 14:37 | NUR ---
PT UP TO RESTROOM TO VOID. STEADY GAIT. PT IS AWAKE AND ORIENTED.
[2022-08-24 14:45] VITALS: BP 102/58; PULSE 63; TEMP 98
[2022-08-24 15:00] VITALS: BP 113/60; PULSE 72; TEMP 98
--- NOTE | 2022-08-24 15:30 | NUR ---
IV AND TELE DCD. DISCHARGE INSTURCTIONS DISCUSSED WITH PT. ALL QUESTIONS ANWERED. PT WHEELED DOWN TO ENTERANCE FOR DISCHARGE.
== END 2022-08-25 16:56 ==
LOC: COL.RAD 12:01
PROVIDERS: Internal Medicine Adult Congenital Heart Disease
DX: I63.9 Cerebral infarction, unspecified (principal)
CPT/HCPCS: Q9957

== ENCOUNTER → 2023-05-12 | Outpatient (CLI) | payer BC ==
[~2023-05-12] MED LIST changes: +AJOVY225 MG/1.5 SQ; +DEPAKOTE500 MG PO; +GLUCOPHAGE XR500 M1 PO; +KLONOPIN2 MG PO; +LIPITOR 80MG80 MG PO; +LYRICA 25MG CAP25 MG PO; +PRINIVIL5 MG PO; +PROTONIX 40MG T40 MG PO; +SAXENDA6 MG/ML SQ; +SEROQUEL400 MG PO; +ZOFRAN ODT4 MG PO; +ZYPREXA10 MG PO
== END ==
LOC: COL.RAD 12:50
DX: M25.511 Pain in right shoulder (principal)

== ENCOUNTER → 2023-09-01 | Outpatient (CLI) | payer BC | LOC: MC.RAD 16:20 | DX: Z12.31 Encounter for screening mammogram for malignant neoplasm of breast (principal) ==

== ENCOUNTER 2023-10-21 09:25 | Emergency (ER) | payer BC ==
[~2023-10-21] VITALS: Ht 167.6 cm; Wt 91.8 kg
[2023-10-21 09:41] VITALS: TEMP 98.6
[2023-10-21] MEDS ORDERED: VIIBRYD20 MG PO (09:48)
[2023-10-21] MEDS ORDERED: LORazepam 2 MG/ML 1 ML VIAL IV ONE ×2 (10:00→10:30)
[2023-10-21] MEDS ORDERED: fentaNYL 50 MCG/ML 2 ML VIAL IV ONE (10:00)
[2023-10-21 10:07] LABS: BASO % 0.4 % (0.0-2.0); EOS # 0.2 K/mm3 (0.0-0.7); EOS % 3.1 % (0.0-4.0); GRAN # 2.9 K/mm3 (1.4-6.5); HEMOGLOBIN 12.1 g/dl (12.5-16.0); LYMPH # 1.7 K/mm3 (1.2-3.4); MEAN CELL VOLUME 91 fl (80.0-100.0); MEAN CORPUSCULAR HEMOGLOBIN 30 pg (27-31); MEAN CORPUSCULAR HGB CONC 33 g/dl (33.0-37.0); MEAN PLATELET VOLUME 9.2 fl (7.4-10.4); MONO # 0.4 K/mm3 (0.1-0.6); MONO % 8.1 % (1.7-9.3); PLATELET COUNT 294 K/mm3 (130-400); RED BLOOD COUNT 4.01 M/mm3 (4.10-5.30); REDCELL DISTRIBUTION WIDTH-CV 13.4 % (11.5-14.5)
[2023-10-21 10:08] LABS: HEMATOCRIT 36.3 % (37.0-47.0)
[2023-10-21 10:23] LABS: ALBUMIN 3.9 gm/dL (3.5-5.0); BILIRUBIN,TOTAL 0.3 mg/dL (0.2-1.2); C-REACTIVE PROTEIN 0.07 mg/dL (0.00-0.50); CREATININE, serum 0.87 mg/dL (0.57-1.11); POTASSIUM 3.9 mmol/L (3.5-4.5); TOTAL PROTEIN 6.8 gm/dL (6.2-8.1)
[2023-10-21 10:42] LABS: PROLACTIN 7.1 ng/mL (5.18-26.53)
[2023-10-21 11:05] VITALS: BP 92/49; PULSE 70
== END 2023-10-21 11:05 | disposition home or self-care (01) ==
LOC: COL.ER 09:25
PROVIDERS: Family Medicine
DX: S00.93XA Contusion of unspecified part of head, initial encounter (principal); F44.5 Conversion disorder with seizures or convulsions; R29.818 Other symptoms and signs involving the nervous system; Z79.899 Other long term (current) drug therapy; Z88.5 Allergy status to narcotic agent; W18.09XA Striking against other object with subsequent fall, initial encounter
CPT/HCPCS: J2060; J3010

== ENCOUNTER 2023-11-21 15:47 | Emergency (ER) | payer BC ==
[~2023-11-21] VITALS: Ht 167.6 cm; Wt 89.5 kg
[~2023-11-21 15:47] MED LIST changes: +VIIBRYD20 MG PO
[2023-11-21 15:53] VITALS: TEMP 98.4
[2023-11-21] MEDS ORDERED: NS 1,000 ML IV ONE (16:15)
[2023-11-21 16:22] LABS: BASO % 0.4 % (0.0-2.0); EOS # 0.2 K/mm3 (0.0-0.7); GRAN # 7.1 K/mm3 (1.4-6.5); GRAN % 67.7 % (42.2-75.2); HEMOGLOBIN 13.5 g/dl (12.5-16.0); LYMPH # 2.4 K/mm3 (1.2-3.4); LYMPH % 23.3 % (20.0-51.0); MEAN CELL VOLUME 90 fl (80.0-100.0); MEAN CORPUSCULAR HEMOGLOBIN 30 pg (27-31); MEAN CORPUSCULAR HGB CONC 34 g/dl (33.0-37.0); MEAN PLATELET VOLUME 9.1 fl (7.4-10.4); MONO # 0.7 K/mm3 (0.1-0.6); MONO % 6.4 % (1.7-9.3); PLATELET COUNT 340 K/mm3 (130-400); RED BLOOD COUNT 4.46 M/mm3 (4.10-5.30); REDCELL DISTRIBUTION WIDTH-CV 13.5 % (11.5-14.5)
[2023-11-21 16:36] LABS: ALBUMIN 4.2 g/dL (3.5-5.0); BILIRUBIN,TOTAL 0.4 mg/dL (0.2-1.2); CREATININE, serum 0.95 mg/dL (0.57-1.11); POTASSIUM 3.6 mEq/L (3.5-4.5); TOTAL PROTEIN 7.4 g/dl (6.2-8.1)
[2023-11-21 18:13] LABS: COLLECTION METHOD CLEAN CATCH
[2023-11-21 18:24] LABS: URINE APPEARANCE CLEAR (CLEAR/HAZY); URINE BLOOD NEGATIVE (NEGATIVE); URINE COLOR YELLOW (YELLOW); URINE GLUCOSE NEGATIVE (NEGATIVE); URINE KETONE NEGATIVE (NEGATIVE); URINE NITRATE NEGATIVE (NEGATIVE); URINE PROTEIN(semi-quant) NEGATIVE (NEGATIVE); URINE UROBILINOGEN 0.2 E.U/dL (0.2-1.0)
[2023-11-21 18:47] VITALS: BP 114/66; PULSE 78
== END 2023-11-21 18:48 | disposition home or self-care (01) ==
LOC: COL.ER 15:47
PROVIDERS: Physician Assistant
DX: R10.84 Generalized abdominal pain (principal)
CPT/HCPCS: J7030

== ENCOUNTER → 2024-01-10 | Outpatient (CLI) | payer BC | LOC: MHCPAIN 11:01 | DX: G43.709 Chronic migraine without aura, not intractable, without status migrainosus (principal) | CPT/HCPCS: G0463 ==

== ENCOUNTER → 2024-01-20 | Outpatient (CLI) | payer BC | LOC: COL.RAD 09:50 | DX: M76.31 Iliotibial band syndrome, right leg (principal) ==

== ENCOUNTER → 2024-01-31 | Outpatient (CLI) | payer BC | LOC: MHCPAIN 13:10 | DX: G43.709 Chronic migraine without aura, not intractable, without status migrainosus (principal) | CPT/HCPCS: J0585 ==

== ENCOUNTER 2024-05-14 20:43 | Observation (INO) | payer BC ==
[~2024-05-14] VITALS: Ht 167.6 cm; Wt 86.3 kg
[2024-05-14] MEDS ORDERED: LR 1,000 ML IV ONE ×3 (21:15→23:15)
[2024-05-14 21:33] LABS: COLLECTION METHOD CLEAN CATCH
[2024-05-14 21:36] LABS: BASO % 0.2 % (0.0-2.0); EOS # 0.2 K/mm3 (0.0-0.7); EOS % 2.5 % (0.0-4.0); GRAN # 3.9 K/mm3 (1.4-6.5); GRAN % 47.4 % (42.2-75.2); HEMATOCRIT 39.9 % (37.0-47.0); HEMOGLOBIN 13.3 g/dl (12.5-16.0); LYMPH # 3.3 K/mm3 (1.2-3.4); LYMPH % 40.4 % (20.0-51.0); MEAN CELL VOLUME 88 fl (80.0-100.0); MEAN CORPUSCULAR HEMOGLOBIN 29 pg (27-31); MEAN CORPUSCULAR HGB CONC 33 g/dl (33.0-37.0); MEAN PLATELET VOLUME 8.9 fl (7.4-10.4); MONO # 0.7 K/mm3 (0.1-0.6); MONO % 9.1 % (1.7-9.3); PLATELET COUNT 401 K/mm3 (130-400); RED BLOOD COUNT 4.55 M/mm3 (4.10-5.30); REDCELL DISTRIBUTION WIDTH-CV 14.2 % (11.5-14.5)
[2024-05-14 21:37] LABS: PH 7.5 (5.0-8.5); URINE APPEARANCE CLEAR (CLEAR/HAZY); URINE BLOOD NEGATIVE (NEGATIVE); URINE COLOR YELLOW (YELLOW); URINE GLUCOSE NEGATIVE (NEGATIVE); URINE KETONE NEGATIVE (NEGATIVE); URINE NITRATE NEGATIVE (NEGATIVE); URINE PROTEIN(semi-quant) NEGATIVE (NEGATIVE); URINE UROBILINOGEN 0.2 E.U/dL (0.2-1.0)
[2024-05-14 21:59] LABS: ALBUMIN 3.9 g/dL (3.5-5.0); BILIRUBIN,TOTAL 0.3 mg/dL (0.2-1.2); CALCIUM 10.1 mg/dL (8.4-10.2); CREATININE, serum 1.11 mg/dL (0.57-1.11); POTASSIUM 4.5 mEq/L (3.5-4.5); TOTAL PROTEIN 7.2 g/dl (6.2-8.1)
[2024-05-14 22:06] LABS: TROPONIN-I 0.016 ng/mL (0.00-0.033)
[2024-05-14] MEDS ORDERED: Iohexol 350 - 100 ML VIAL IV ONE (22:39)
[2024-05-14] MEDS ORDERED: NS 100 ML IV ONE (22:40)
[2024-05-15] VITALS (17 sets, daily range): BP systolic 32–132; BP diastolic 53–84; PULSE 81–92; TEMP 98.1–99.3
[2024-05-15] MEDS ORDERED: LR 1,000 ML IV SCH (00:45)
--- NOTE | 2024-05-15 01:45 | NUR ---
PATIENT ADMITTED TO ROOM 316 BROUGHT UP BY ITEM REPAIR MANAGER IN BED. PATIENT INDEPENDENT AND AMBULATED TO RESTROOM TO VOID. VS ARE 90/55 98.1 TEMP, PULSE, 83 AND 02 98% ON RA, RR 18. PATIENT A&O X 4. PLACED IN [place] BP NOW 95/56. ORIENTED TO ROOM. PATIENT NOW BACK IN SUPINE POSITION BP- 111/69.
[2024-05-15] MEDS ORDERED: CATAPRES 0.1MG0.1 MG PO (02:20)
[2024-05-15] MEDS ORDERED: BUSPAR10 MG PO (02:21)
[2024-05-15] MEDS ORDERED: ATIVAN 1MG T1 MG/TAB PO (02:22)
[2024-05-15] MEDS ORDERED: UBRELVY100 MG PO (02:23)
[2024-05-15] MEDS ORDERED: SPRAVATO84 MG NS (02:26)
[2024-05-15] MEDS ORDERED: BOTOX 100100 U/VIAL IM (02:27)
--- NOTE | 2024-05-15 02:38 | NUR ---
CALL PLACED TO HOSPITALISTBOB. PATIENT HYPOTENSIVE-89/53 WITH MAP 65. TORB TO MAINTAIN VIGILANCE FOR BP RESULTING WITH A MAP BELOW 65 AND CALL HER JG.
[2024-05-15] MEDS ORDERED: LAMICTAL150 MG PO (04:32)
[2024-05-15] MEDS ORDERED: NURTEC ODT75 MG PO (04:34)
[2024-05-15] MEDS ORDERED: ASPIRIN E.C. 8181 MG PO (04:35)
[2024-05-15 05:22] LABS: TRICYCLIC ANTIDEPRESS URINE POSITIVE (NEGATIVE)
[2024-05-15] MEDS ORDERED: Dextrose (Glucose) 15 GM (4 x 3.75 GM) Chewable TABLET PACK PO PRN (07:15)
[2024-05-15] MEDS ORDERED: Dextrose 50% Water 25 GM/50 ML SYRINGE IV PRN (07:15)
[2024-05-15] MEDS ORDERED: Glucagon 1 MG VIAL IM PRN (07:15)
[2024-05-15] MEDS ORDERED: Insulin Lispro (HumaLOG) SQ SCH (08:00)
[2024-05-15] MEDS ORDERED: LAMOTRIGINE PO SCH (09:00)
[2024-05-15] MEDS ORDERED: LORazepam 1 MG TAB PO SCH (09:00)
[2024-05-15] MEDS ORDERED: busPIRone 5 MG TAB PO SCH (09:00)
--- NOTE | 2024-05-15 09:00 | NUR ---
Assessment completed. Pt a/o x4. Denies chest pain or SOA. On RA. NPO until cardiology consults. LR infuisng at 100ml/hr without IV related complications. Tele NSR. Denies needs at this time.
[2024-05-15] MEDS ORDERED: ZOFRAN ODT4 MG PO (10:33)
--- NOTE | 2024-05-15 10:56 | NUR ---
Restaurant Shift Supervisor met with patient to discuss discharge planning.
--- NOTE | 2024-05-15 13:12 | NUR ---
D: Accounts Receivable Executive stopped by room on rounds. A: Pt was resting and content. Pt grew up in [place]. Biggest concern right now is just the quick changes in her health. Trying to find out what is going on with her blood pressure, along with other health issues. Pt asked for prayer, trimmer hand prayed with her. Pt appreciated the visit. P: Accounts Receivable Executive informed pt that if she needed anything from the trimmer hand area to let her nurse know. Accounts Receivable Executive will follow up as needed.
[2024-05-15] MEDS ORDERED: Ibuprofen 400 MG TAB PO PRN (14:00)
[2024-05-15] MEDS ORDERED: Acetaminophen 500 MG TAB PO PRN (14:00)
--- NOTE | 2024-05-15 14:30 | NUR ---
Patient continues to complain of low back pain. Dr. Eagle notified. Order rec'd. Tylenol and ibuprofen administered.
--- NOTE | 2024-05-15 16:12 | NUR ---
Neurology Technician met with patient to discuss discharge planning. Patient lives in [place] with her father, Biju (ph#[phone]) [address] Alfaro for primary care. Patient gets medications at [facility] and is insured by [facility], which she advised is through [employer]. Patient is not able to drive so she relies on friends to transport her to appointments. Patient does not use any DME and is independent with ADLS. Patient stated her son, Atif is her DPOA-HC. Patient plans to return home at time of discharge. ANGELA contacted ANGELA Patino at the PCP's office to request Advance Directives. Carey could not locate DPOA, but provided Living Will, which ANGELA placed in chart. Discharge Plan: Home
[2024-05-15] MEDS ORDERED: traMADol 50 MG TAB PO PRN (16:15)
--- NOTE | 2024-05-15 16:33 | NUR ---
Dr. Eagle notified of patient's complaint of continued pain to low back, even after receiving Tylenol and Ibuprofen. Tramadol administered for c/o pain.
[2024-05-15] MEDS ORDERED: SUMAtriptan 25 MG TAB PO ONE (18:00)
--- NOTE | 2024-05-15 18:25 | NUR ---
Dr. Eagle notified of patient's complaint of migrane headache. Order received. Imitrix administered po. Order also rec'd for k-pad and is in place to lower back. Patient reports lbp now 09/10.
--- NOTE | 2024-05-15 19:16 | NUR ---
Patient reports migraine 5/10 and low back pain 2/10. Reports overall feeling better since receiving the Ultram and Imitrex. Patient denies needs at this time. Bedside report given to ABHIJEET Witt.
[2024-05-15] MEDS ORDERED: QUEtiapine 100 MG TAB PO SCH (21:00)
[2024-05-15] MEDS ORDERED: Atorvastatin 80 MG TAB PO SCH (21:00)
[2024-05-16] VITALS (14 sets, daily range): BP systolic 94–134; BP diastolic 61–85; PULSE 73–111; TEMP 97.8–99
--- NOTE | 2024-05-16 07:29 | NUR ---
patient lying in bed, alert and oriented x4. denies chest pain and shortness of breath. ambulates with steady gait. IV in LAC is patent, site CDi with LR running at 100 ml/hr. aware of NPO at midnight. call light within reach. pt has no further needs, questions or concerns at this time.
--- NOTE | 2024-05-16 08:00 | NUR ---
PATIENT LAYING IN BED. HEAD TO TOE ASSESSMENT COMPLETED. MORNING MEDS GIVEN. HELD ATIVAN FOR UPCOMING ECHO. PT REPORTS MIRGRAINE PAIN. I INFORMED PROVIDER, PROVIDED ORDERED IMITREX, WILL GIVE FOR PT. NO OTHER COMPLAINTS AT THIS TIME. BED IN LOWEST POSTION, CALL LIGHT IN REACH.
[2024-05-16 08:20] LABS: BASO % 0.4 % (0.0-2.0); EOS # 0.1 K/mm3 (0.0-0.7); EOS % 2.4 % (0.0-4.0); GRAN # 1.8 K/mm3 (1.4-6.5); LYMPH # 2.3 K/mm3 (1.2-3.4); LYMPH % 49.4 % (20.0-51.0); MEAN CELL VOLUME 89 fl (80.0-100.0); MEAN CORPUSCULAR HGB CONC 33 g/dl (33.0-37.0); MEAN PLATELET VOLUME 9.1 fl (7.4-10.4); MONO # 0.4 K/mm3 (0.1-0.6); MONO % 8.6 % (1.7-9.3); RED BLOOD COUNT 3.51 M/mm3 (4.10-5.30); REDCELL DISTRIBUTION WIDTH-CV 14.6 % (11.5-14.5)
[2024-05-16 08:21] LABS: HEMATOCRIT 31.2 % (37.0-47.0); HEMOGLOBIN 10.3 g/dl (12.5-16.0); MEAN CORPUSCULAR HEMOGLOBIN 29 pg (27-31); PLATELET COUNT 284 K/mm3 (130-400)
[2024-05-16 08:45] LABS: CREATININE, serum 0.73 mg/dL (0.57-1.11); POTASSIUM 4.2 mEq/L (3.5-4.5)
--- NOTE | 2024-05-16 10:20 | NUR ---
Initial visit; Patient thanked Lunch Cook for looking in on her and offering Spiritual Care which included prayer for letting everyone take good care of her and for her body to heal. Tori appeared pleased to have Lunch Cook visit.
[2024-05-16] MEDS ORDERED: SUMAtriptan 25 MG TAB PO ONE (10:45)
[2024-05-16] MEDS ORDERED: Regadenoson 0.08 MG/ML 5 ML SYRINGE IV ONE (12:09)
--- NOTE | 2024-05-16 16:00 | NUR ---
PATIENT PICKED UP FOR [facility]AR[facility] SCAN AROUND 1100 AND RETURNED AROUND 1430.
--- NOTE | 2024-05-16 19:21 | NUR ---
Discharge instructions reviewed- patient verbalizes understanding. INT d/c'd with cath tip intact. Tele d/c'd. Patient will call when her ride arrives.
--- NOTE | 2024-05-16 19:30 | NUR ---
Patient escorted to private vehicle via w/c and discharged home with family.
== END 2024-05-16 19:30 | disposition home or self-care (01) ==
LOC: COL.ER 20:43 → MEDICAL 05-15 00:44
PROVIDERS: Emergency Medicine; Nurse Practitioner Family; Physician Assistant; ADMIT Internal Medicine
DX: R55 Syncope and collapse (principal); R07.2 Precordial pain; I95.9 Hypotension, unspecified; R00.0 Tachycardia, unspecified; E78.5 Hyperlipidemia, unspecified; E11.22 Type 2 diabetes mellitus with diabetic chronic kidney disease; I12.9 Hypertensive chronic kidney disease with stage 1 through stage 4 chronic kidney disease, or unspecified chronic kidney disease; N18.2 Chronic kidney disease, stage 2 (mild); E03.9 Hypothyroidism, unspecified; F32.A Depression, unspecified; F41.1 Generalized anxiety disorder; F43.20 Adjustment disorder, unspecified; F43.10 Post-traumatic stress disorder, unspecified; R29.818 Other symptoms and signs involving the nervous system; G40.89 Other seizures; I25.2 Old myocardial infarction; M79.7 Fibromyalgia; G43.909 Migraine, unspecified, not intractable, without status migrainosus; K21.9 Gastro-esophageal reflux disease without esophagitis; Z79.84 Long term (current) use of oral hypoglycemic drugs; Z86.73 Personal history of transient ischemic attack (TIA), and cerebral infarction without residual deficits; Z95.818 Presence of other cardiac implants and grafts; Z79.890 Hormone replacement therapy; Z79.82 Long term (current) use of aspirin; Z79.899 Other long term (current) drug therapy
CPT/HCPCS: A9500-JZ; G0378; J2785; J7120; Q9967